=== PATIENT | male | born 1975 | race Caucasian/White ===

== ENCOUNTER 2025-02-04 06:19 | Day surgery (SDC) | payer OTHER ==
[2025-02-04] MEDS: Lactated Ringers 1,000 ML IV SCH (06:59)
[2025-02-04] MEDS ORDERED: Propofol 200 MG/20 ML SDV ONE (07:12)
[2025-02-04] MEDS ORDERED: Midazolam 1 MG/ML 2 ML SDV ONE (07:13)
[2025-02-04] MEDS ORDERED: fentaNYL 100 MCG/2 ML SDV ONE (07:13)
== END 2025-02-04 09:15 | disposition home or self-care (01) ==
LOC: JP.SDS 06:19
PROVIDERS: ATTEND Surgery
DX: Z12.11 Encounter for screening for malignant neoplasm of colon (principal); D12.3 Benign neoplasm of transverse colon; I10 Essential (primary) hypertension
CPT/HCPCS: 00811; 45380; 88305; J2250; J2704; J3010; J7120